=== PATIENT | female | born 1990 | race American Indian/Alaskan Native ===

== ENCOUNTER 2017-10-02 04:26 | Inpatient (IN) | payer MEDICAID ==
[2017-10-02] MEDS ORDERED: SUBLIMAZE IV PRN (04:42)
[2017-10-02] MEDS ORDERED: POLYCILLIN/NS 2 GM/100 ML 2 GM/100 ML BAG IV ONE (04:42)
[2017-10-02] MEDS ORDERED: PITOCin/NS 20 UNIT/1000ML DRIP 20 UNITS/1,000 ML BAG IV SCH (05:00)
[2017-10-02] MEDS ORDERED: LACTATED RINGERS 500 ML IV SCH (05:00)
[2017-10-02] MEDS ORDERED: LACTATED RINGERS 1,000 ML ONE (05:04)
[2017-10-02 05:14] LABS: Hematocrit 30.1 % (30.3-42.9); Hemoglobin 9.8 gm/dl (10.1-14.3); Mean Corpuscular HGB Conc 33 % (30-34); Mean Corpuscular Hemoglobin 26 pg (28-32); Mean Corpuscular Volume 80 fl (79-97); Platelet Count 300 K/mm3 (140-440); Red Blood Count 3.75 M/mm3 (3.65-5.03); Red Cell Distribution Width 15.4 % (13.2-15.2)
[2017-10-02] MEDS ORDERED: NARCAN 0.4 MG/1 ML IV PRN (05:42)
[2017-10-02] MEDS ORDERED: MINERAL OIL PO PRN (05:42)
[2017-10-02] MEDS ORDERED: BRETHINE SUB-Q PRN (05:42)
[2017-10-02] MEDS ORDERED: BRETHINE IVP PRN (05:42)
[2017-10-02] MEDS ORDERED: ePHEDrine SULFATE IV PRN (05:42)
[2017-10-02] MEDS ORDERED: XYLOCAINE 2% INFILTRATI ONE (05:42)
--- NOTE | 2017-10-02 05:49 | History and Physical Report ---
History of Present Illness Date of examination: 10/02/17 Date of admission: 10/02/17 04:46 Chief complaint: Intense Labor Pains History of present illness: care at [facility], records unavailable, states she was taking oral progesterone due to hx of PTD. States she was treated for Chlamydia. Also states she is GBS Positive. Past History Past Medical History: no pertinent history Past Surgical History: no surgical history [employer] History: chlamydia Family/Genetic History: heart disease (MGM) Social history: no significant social history, single, smoking (stopped smoking THC about 8 months ago) - Obstetrical History Expected Date of Delivery: 10/06/17 Actual Gestation: 39 Week(s) 3 Day(s) : 4 Para: 3 Hx # Term Pregnancies: 1 Number of Pregnancies: 1 Number of Living Children: 2 #1 year: 2,010 Method of Delivery: Vaginal Gestational age at delivery: 25 Complications: other (Stillbirth) #2 Gender: Male year: 2,011 Birthweight: 1.474 kg Method of Delivery: Vaginal Gestational age at delivery: 34 #3 Gender: Male year: 2,014 Birthweight: 2.438 kg Method of Delivery: Vaginal Gestational age at delivery: 39 Medications and Allergies Allergies Allergy/AdvReac Type Severity Reaction Status Date / Time No Known Allergies Allergy Unverified 10/02/17 04:30 Home Medications Medication Instructions Recorded Confirmed Last Taken Type No Known Home Medications [No 10/02/17 10/02/17 Unknown History Reported Home Medications] Active Meds: Active Medications Fentanyl (Sublimaze) 100 mcg IV Q2H PRN PRN Reason: Labor Pain Last Admin: 10/02/17 05:17 Dose: 100 mcg Lactated Ringer's (Lactated Ringers) 500 mls @ 125 mls/hr IV DIRECT LIV Ampicillin Sodium (Ampicillin/Ns 1 Gm/50 Ml) 1 gm in 50 mls @ 100 mls/hr IV Q4HR LIV; Protocol Oxytocin/Sodium Chloride (Pitocin/Ns 20 Unit/1000ml Drip) 20 units in 1,000 mls @ 125 mls/hr IV DIRECT LIV Review of Systems All systems: negative - Vital Signs Vital signs: Vital Signs Temp Resp 97.7 F 22 10/02/17 04:31 10/02/17 04:31 Temp Pulse Resp BP Pulse Ox 97.7 F 87 22 117/56 99 10/02/17 04:31 10/02/17 05:48 10/02/17 04:31 10/02/17 04:51 10/02/17 05:48 - Physical Exam Breasts: Positive: normal Cardiovascular: Regular rate Lungs: Positive: Clear to auscultation, Normal air movement Abdomen: Positive: normal appearance, soft, normal bowel sounds Genitourinary (Female): Positive: normal external genitalia, normal perenium Uterus: Positive: enlarged Anus/Rectum: Positive: normal perianal skin - Obstetrical FHR: category 1 Uterine Contraction Monitor Mode: External Cervical Dilatation: 6 (Moderate amount of clear fluid upon AROM at 0530) Cervical Effacement Percentage: 90 station: -2 Uterine Contraction Frequency (min): 2.5 Uterine Contraction Pattern: Regular Uterine Tone Measurement Phase: Resting Uterine Contraction Intensity: Moderate Results Result Diagrams: 10/02/17 04:50 Abnormal lab results 10/02/17 Range/Units 04:50 Hgb 9.8 L (10.1-14.3) gm/dl Hct 30.1 L (30.3-42.9) % MCH 26 L (28-32) pg RDW 15.4 H (13.2-15.2) % All other labs normal. Assessment and Plan A: IUP @ 39 3/7 Weeks Category I Tracing Active Labor GBS Positive P: Admit to L&D per Routine Orders AROM IV Pain Control GBS Prophylaxis
[2017-10-02] MEDS ORDERED: LACTATED RINGERS 1,000 ML IV SCH (06:00)
[2017-10-02] MEDS ORDERED: AMPICILLIN/NS 1 GM/50 ML 1 GM/50 ML BAG IV SCH (06:00)
[2017-10-02] MEDS ORDERED: PITOCin/NS 30 UNIT/500ML 30 UNITS/500 ML BAG IV SCH (06:00)
[2017-10-02] MEDS ORDERED: SUBLIMAZE ONE (07:07)
[2017-10-02] MEDS ORDERED: SUBLIMAZE IV NR (07:12)
--- NOTE | 2017-10-02 08:44 | Procedure Note ---
OB Delivery Note - Delivery Date of Delivery: 10/02/17 (0817) Surgeon: DARI PRADO Estimated blood loss: other (150) - Vaginal Delivery presentation: vertex Delivery position: OA Intrapartum events: none Delivery induction: none Delivery augmentation: rupture of membranes Delivery monitor: external uterine, internal FHT Route of delivery: Delivery placenta: spontaneous Delivery cord: 3 umbilical vessels Episiotomy: none Delivery laceration: none Anesthesia: none Delivery comments: of a live 6'15 female infant over a intact perineum under IV pain control with Apgars of 8 and 9 at 0817 on 10/02/2017. directly to maternal abd/ chest, skin to skin contact. Spontaneous delivery of placenta complete and intact with [place] side presenting at 0821. Fundus is firm and midline located 4 below the U. Lochia is scant. Delayed cord clamping and cutting; Cord cut by the mother. Placenta discarded.
[2017-10-02] MEDS ORDERED: SODIUM CHLORIDE FLUSH SYRINGE 10 ML IV PRN (09:00)
[2017-10-02] MEDS ORDERED: BENADRYL PO PRN (09:00)
[2017-10-02] MEDS: NORCO 5/325 PO PRN (11:22)
[2017-10-02] MEDS: MOTRIN PO SCH ×2 (12:00→17:54)
[2017-10-02 20:31] LABS: Hemoglobin 9.1 gm/dl (10.1-14.3)
[2017-10-03] MEDS: MOTRIN PO SCH ×5 (00:21→23:48)
[2017-10-03] MEDS: NORCO 5/325 PO PRN ×2 (02:55→09:40)
--- NOTE | 2017-10-03 10:06 | Progress Note ---
Assessment and Plan A: PPD#1 s/p Stable P: Routine care discharge home in am Subjective - Subjective Date of service: 10/03/17 Principal diagnosis: s/p Patient reports: appetite normal, voiding normally, pain well controlled, flatus , ambulating normally : doing well, bottle feeding Objective - Vital Signs Latest vital signs: Vital Signs Temp Pulse Resp BP BP Pulse Ox 10/03/17 09:40 20 10/03/17 08:56 97.6 F 79 18 133/51 99 10/03/17 00:30 98.6 F 71 16 124/71 10/02/17 20:00 98.7 F 78 18 134/74 10/02/17 16:45 97.7 F 83 20 123/62 10/02/17 13:45 98.4 F 80 20 107/78 10/02/17 11:22 20 10/02/17 11:00 98.7 F 82 125/50 99 Intake and Output 10/02/17 10/03/17 10/03/17 23:59 07:59 15:59 Intake Total 870 300 600 Output Total 400 Balance 470 300 600 Intake: Oral 570 240 Intake, Free Water 300 300 360 Output: Urine 400 Void 400 Other: Total, Intake Amount 250 240 Total, Output Amount 400 # Voids Void 1 - Exam Breasts: Present: normal Cardiovascular: Present: Regular rate, Normal S1, Normal S2 Lungs: Present: Clear to auscultation, Normal air movement Abdomen: Present: normal appearance, soft, normal bowel sounds Vulva: both: normal Uterus: Present: firm, fundal height at umbilicus Extremities: Present: normal Deep Tendon Reflex Grade: Normal +2 - Labs Labs: Abnormal lab results 10/02/17 Range/Units 20:19 Hgb 9.1 L (10.1-14.3) gm/dl Hct 27.0 L (30.3-42.9) %
--- NOTE | 2017-10-03 10:08 | Discharge Summary ---
Providers - Providers Date of Admission: 10/02/17 04:46 Date of discharge: 10/04/17 Attending physician: GUILLERMINA HOUSTON MD Primary care physician: GUILLERMINA HOUSTON MD Hospitalization Reason for admission: induction of labor, IUP at term Delivery: Procedure details: See H&P and delivery note Episiotomy: none Laceration: none Other procedures: none complications: none Discharge diagnosis: IUP at term delivered baby: female Condition at discharge: Good Disposition: DC-01 TO HOME OR SELFCARE Plan - Provider Discharge Summary Activity: routine, no sex for 6 weeks, no heavy lifting 4 weeks, no strenuous exercise Diet: routine Instructions: routine Additional instructions: [] Smoking cessation referral if applicable(refer to patient education folder for contact #) [] Refer to [facility]'s [facility] Booklet Call your doctor immediately for: * Fever > 100.5 * Heavy vaginal bleeding ( >1 pad per hour) * Severe persistent headache * Shortness of breath * Reddened, hot, painful area to leg or breast * Drainage or odor from incision. * Keep incision clean and dry at all times and follow doctor's instructions regarding bathing/showering - Follow up plan Follow up: GUILLERMINA HOUSTON MD [Primary Care Provider] - 6 Weeks
[2017-10-04] MEDS: MOTRIN PO SCH ×2 (05:04→12:20)
[2017-10-04 09:29] VITALS: BP 123/60
== END 2017-10-04 16:00 | disposition home or self-care (01) | DRG 775 ==
LOC: TRG 04:26 → LD 04:46 → OB 10:54
PROVIDERS: ADMIT Obstetrics & Gynecology; ATTEND Obstetrics & Gynecology
PROC: 10E0XZZ Delivery of Products of Conception, External Approach (ICD-10-PCS; principal; 2017-10-02)
PROC: 10907ZC Drainage of Amniotic Fluid, Therapeutic from Products of Conception, Via Natural or Artificial Opening (ICD-10-PCS; 2017-10-02)
DX: O99.824 Streptococcus B carrier state complicating childbirth (principal); Z3A.39 39 weeks gestation of pregnancy; Z37.0 Single live birth
CPT/HCPCS: 36415; 85014; 85018; 85027; 86592; 86850; 86900; 86901; J0290; J2590; J3010; J7120